=== PATIENT | female | born 1945 | race Caucasian/White ===

== ENCOUNTER → 2017-07-24 | Outpatient (CLI) | payer MEDICARE, BC ==
[~2017-07-24] MED LIST: ACID1PAC PO; ACID1TAB13 PO; Aspirin PO; CIP500 PO; CIPR-344 PO; CLI150 PO; DIA5 PO; DOC100 PO; ENO40I SQ; FLUC100T35 PO; HYDR-318 PO; HYOS0.3729 PO; LEV500 PO; LEVO50TA86 PO; LOM PO; LOR5 PO; LOR7.5/325 PO; METR250 PO; MOM PO; MULT-820 PO; Miscellaneous Information PO; PHENA200 PO
== END ==
LOC: LAB 11:08
PROVIDERS: ATTEND Urology
DX: N39.0 Urinary tract infection, site not specified (principal); B96.89 Other specified bacterial agents as the cause of diseases classified elsewhere
CPT/HCPCS: 81001; 87088

== ENCOUNTER → 2017-12-18 | Outpatient (CLI) | payer MEDICARE, BC ==
--- NOTE | 2017-12-18 15:24 | RADIOLOGY IMAGING REPORT ---
[place] [facility] [place] NAME: Lillian Zavala : 1945 MR: [id number] V: [id number] EXAM DATE: ORDERING PHYSICIAN: STANLEY ROSARIO TECHNOLOGIST: Location: [facility] Patient: Lillian Zavala : 1945 Visit/Account:[id number] Date of Sevice: 12/18/2017 CT ABDOMEN WITHOUT CONTRAST CLINICAL INFORMATION: Abdominal mass, rule out ventral hernia TECHNIQUE: Axial CT images were obtained through the abdomen without administration of IV contrast. Reformatted coronal and sagittal images were also obtained. Dose Lowering Technique One of the following dose optimization techniques was utilized in the performance of this exam: Autom ated exposure control; adjustment of the mA and/or kV according to the patient's size; or use of an i terative reconstruction technique. Specific details can be referenced in the facility's radiology C T exam operational policy. COMPARISON: CT August 31, 2008 FINDINGS: Motion artifact is present Lower lung burn[place]: Limited views lower lung field are unremarkable other than incidental mild aneurys mal dilatation of descending thoracic aorta measuring 3.2 cm in diameter. Evaluation of the solid organs of the abdomen is limited without IV contrast. Liver: No focal parenchymal abnormality of the liver. Biliary: Gallbladder appears unremarkable as well as the intra and extra hepatic biliary system. Pancreas: Atrophic Spleen: Normal appearance. Adrenal glands: Unremarkable. Kidneys / retroperitoneum: No evidence of nephrolithiasis or hydronephrosis Bowel / peritoneum / mesenteries: There is a small hiatal hernia. There is Is a moderate amount of f ecal material seen in the visualized portion the colon which can be seen with constipation Lymph node assessment: No pathologic adenopathy identified. Vessels: Mild vascular calcifications atherosclerotic calcification seen throughout a nonaneurysmal a bdominal aorta and branches. Musculoskeletal / Body wall: Moderate spondylotic changes of the thoracolumbar spine Small umbilical hernia containing fat IMPRESSION: 1. Small umbilical hernia containing fat Mild aneurysmal dilatation of the descending thoracic aorta measuring 3.2 cm in diameter Small hiatal hernia Moderate amount of fecal material throughout colon which can be seen with constipation Report Dictated By: Sierra Tafoya MD at 12/18/2017 3:13 PM Report E-Signed By: Sierra Tafoya MD at 12/18/2017 3:19 PM WSN:[email or web address]
== END ==
LOC: CT 09:58
PROVIDERS: ATTEND Family Medicine
DX: K42.9 Umbilical hernia without obstruction or gangrene (principal); I71.2 Thoracic aortic aneurysm, without rupture; K44.9 Diaphragmatic hernia without obstruction or gangrene; K59.00 Constipation, unspecified
CPT/HCPCS: 74150

== ENCOUNTER → 2018-04-08 | Outpatient (CLI) | payer MEDICARE, BC ==
--- NOTE | 2018-04-09 16:06 | RADIOLOGY IMAGING REPORT ---
FACILITY: [facility] - [place] PATIENT NAME: PATRICIA RODARTE : [id number] MR: [id number] V: [id number] EXAM DATE: [id number] ORDERING PHYSICIAN: STANLEY ROSARIO TECHNOLOGIST: Kacie Campbell PROCEDURE:BILATERAL DIGITAL SCREENING MAMMOGRAM WITH CAD ASSISTED INTERPRETATION & 3D TOMOSYNTHESIS COMPARISON:Prior mammograms. INDICATIONS:SCREENING FINDINGS: Scattered fibroglandular densities are present in both breasts. Several benign appearing calcifications are scattered bilaterally. DIAGNOSTIC CATEGORY 1--NEGATIVE. RECOMMENDATIONS: ROUTINE MAMMOGRAM AND CLINICAL EVALUATION IN 1 YR. IMPRESSION: BIRADS 1: Negative. Dictated by: Ramirez Sam M.D. on 04/09/2018 at 14:27 Transcribed by: KIERRA on 04/09/2018 at 14:32 Approved by: Ramirez Sam M.D. on 04/09/2018 at 16:05 [facility]
== END ==
LOC: MAMO 07:52
PROVIDERS: ATTEND Family Medicine
DX: Z12.31 Encounter for screening mammogram for malignant neoplasm of breast (principal)
CPT/HCPCS: 77063; 77067

== ENCOUNTER → 2018-11-03 | Outpatient (CLI) | payer MEDICARE, BC ==
--- NOTE | 2018-11-03 08:22 | EKG ---
FACILITY: [facility] PATIENT NAME: PATRICIA RODARTE : [id number] MR: [id number] V: [id number] EXAM DATE: ORDERING PHYSICIAN: AMINA CARL TECHNOLOGIST: Test Reason : Blood Pressure : / mmHG Vent. Rate : 078 BPM Atrial Rate : 078 BPM P-R Int : 204 ms QRS Dur : 070 ms QT Int : 372 ms P-R-T Axes : 079 086 089 degrees QTc Int : 424 ms Sinus rhythm premature atrial complexes Septal infarct (cited on or before 28-MAY-2014) No ST-T abnormalities When compared with ECG of 28-MAY-2014 09:05, Relatively unchanged Confirmed by NUNU GASPAR ([id number]) on 11/03/2018 11:08:24 AM Referred By: Confirmed By:NUNU GASPAR
[2018-11-03 08:37] LABS: PLATELET COUNT, AUTOMATED 230 K/uL (150-450)
== END ==
LOC: RESP 08:04
PROVIDERS: ATTEND Orthopaedic Surgery
DX: Z01.812 Encounter for preprocedural laboratory examination (principal); Z01.810 Encounter for preprocedural cardiovascular examination; M48.061 Spinal stenosis, lumbar region without neurogenic claudication
CPT/HCPCS: 36415; 82040; 82247; 82310; 82374; 82435; 82565; 82947; 84075; 84132; 84155; 84295; 84443; 84450; 84460; 84520; 85025; 93005

== ENCOUNTER 2018-11-17 02:18 | Observation (INO) | payer MEDICARE, BC ==
[~2018-11-17] VITALS: Ht 170.2 cm; Wt 71.2 kg
[2018-11-17] VITALS (8 sets, daily range): BP systolic 111–154; BP diastolic 79–108
[~2018-11-17 02:18] MED LIST changes: +METH1TAB58 PO; +SIMV10TA96 PO
[2018-11-17] MEDS ORDERED: fentaNYL CITR 100 MCG/2 ML AMP ONE (14:39)
[2018-11-17] MEDS ORDERED: KETAMINE HCL 500 MG/10 ML VIAL ONE (14:40)
[2018-11-17] MEDS ORDERED: LIDOCAINE MPF 1% 5 ML VIAL ONE (14:41)
[2018-11-17] MEDS ORDERED: ONDANSETRON 4 MG/2 ML VIAL ONE (14:41)
[2018-11-17] MEDS ORDERED: DEXAMETHASONE SOD PHOS 10MG/ML ONE ×2 (14:41→16:30)
[2018-11-17] MEDS ORDERED: PROPOFOL EMUL(*) 10MG/ML 20 ML 20 ML ONE (14:41)
[2018-11-17] MEDS ORDERED: ROCURONIUM BROM 10 MG/ML 10 ML ONE (14:42)
[2018-11-17] MEDS ORDERED: PHENYLEPHRINE 10 MG/1 ML VIAL ONE (14:45)
[2018-11-17] MEDS ORDERED: FAMOTIDINE 20 MG TAB PO ONE (14:50)
[2018-11-17] MEDS ORDERED: MIDAZOLAM 2 MG/2 ML VIAL IVP PRN (14:50)
[2018-11-17] MEDS ORDERED: BACITRACIN 50000 UNIT/VIAL 50,000 UNIT in NS 0.9% IRRIG(*) 1000ML PLCT 1,000 ML IR PRN (14:50)
[2018-11-17] MEDS ORDERED: CLINDAMYCIN(*) 900 MG/NS 50 ML 50 ML IVPB ONE (14:50)
[2018-11-17] MEDS ORDERED: LIDOCAINE/SOD BICARB 8.4% SYR ID ONE (14:50)
[2018-11-17] MEDS ORDERED: NORMOSOL R SOLN(*) 1000 ML BAG 1,000 ML IV PRN (14:50)
[2018-11-17] MEDS ORDERED: BUPIVACAIN 0.25% INJ 50ML VIAL ONE (16:31)
[2018-11-17] MEDS ORDERED: SUGAMMADEX SOD 500 MG/5 ML SDV ONE (16:36)
[2018-11-17] MEDS ORDERED: ePHEDrine 25 MG/5 ML DISP.SYR IVP ONE (17:27)
--- NOTE | 2018-11-17 19:24 | RADIOLOGY IMAGING REPORT ---
FACILITY: [facility] PATIENT NAME: Lillian Zavala : 1945 MR: [id number] V: [id number] EXAM DATE: ORDERING PHYSICIAN: AMINA CARL TECHNOLOGIST: [facility] Patient: Lillian Zavala : 1945 Visit/Account:[id number] Date of Sevice: 11/17/2018 L-SPINE >4 VIEWS History: Low back pain for surgery. Comparison study: None. Findings: Two intraoperative lateral lumbar spine images were submitted for interpretation. The imag es are of suboptimal quality, but do demonstrate prominent discogenic degenerative changes. There is a posterior marking element for surgery in this patient. IMPRESSION: Intraoperative lumbar spine films. Report Dictated By: Jonnathan Marina MD at 11/17/2018 7:18 PM Report E-Signed By: Jonnathan Marina MD at 11/17/2018 7:21 PM WSN:[id number]
[2018-11-17] MEDS ORDERED: ACETAMINOPHEN(*)1000 MG/100 ML 100 ML IVPB PRN (19:30)
[2018-11-17] MEDS ORDERED: HYDROmorphone HCL 2 MG/ML SDV IVP PRN (19:30)
[2018-11-17] MEDS ORDERED: LR(*) 1000 ML BAG 1,000 ML IV PRN (19:30)
[2018-11-17] MEDS ORDERED: BENZOCAINE/MENTHOL 1 EACH LOZG PO PRN (19:30)
[2018-11-17] MEDS ORDERED: ONDANSETRON 4 MG/2 ML VIAL IVP PRN (19:30)
[2018-11-17] MEDS ORDERED: FLUSH 10 ML SYR IVP PRN (19:30)
[2018-11-17] MEDS ORDERED: oxyCODONE HCL 5 MG CAP PO PRN (19:30)
[2018-11-17] MEDS ORDERED: APAP/HYDROCODONE 325/5 TAB PO PRN (19:30)
[2018-11-17] MEDS ORDERED: diphenhydrAMINE 25 MG CAP PO PRN (19:30)
[2018-11-17] MEDS ORDERED: BISACODYL 10 MG SUPP PR PRN (19:30)
[2018-11-17] MEDS ORDERED: ACETAMINOPHEN 500 MG TAB PO PRN (19:30)
[2018-11-17] MEDS ORDERED: DIAZEPAM 5 MG TAB PO PRN (19:30)
[2018-11-17] MEDS ORDERED: MAGNESIUM HYDROXIDE* 30ML UDCP PO PRN (19:30)
--- NOTE | 2018-11-17 20:05 | Hospitalist Progress Note ---
Subjective Progress Notes Subjective Patient seen post-op. Reviewed PMHx and medications. She reports doing well currently. Very little surgical site pain. No CP/SOB/nausea. Physical Exam Vital Signs Date Time Temp Pulse Resp B/P (MAP) Pulse Ox O2 Delivery O2 Flow Rate FiO2 11/17/18 19:57 97.6 97 16 87 Room Air General Appearance: Alert, Awake Cardiovascular: Regular Rate and Rhythm (with soft systolic murmur) Respiratory: Clear to Auscultation (anteriorly) Psych: Alert & Oriented X3 Assessment and Plan Problems: (1) Hyperlipidemia Status: Chronic Assessment & Plan: Will continue her usual simvastatin. (2) Hypothyroid Status: Chronic Assessment & Plan: Will continue replacement therapy. (3) Recurrent UTI Status: Chronic Assessment & Plan: She has been managed with Hiprex daily. KENDRA LANDRY MD November 17, 2018 20:05
[2018-11-17] MEDS: DOCUSATE SODIUM 100 MG CAP PO SCH (20:12)
[2018-11-17] MEDS ORDERED: SIMVASTATIN 20 MG TAB PO SCH (21:00)
[2018-11-18] VITALS: BP 107/78
[2018-11-18 01:00] VITALS: BP 100/68
[2018-11-18] MEDS ORDERED: NS(*) 0.9% 250 ML BAG 250 ML ONE (01:16)
[2018-11-18] MEDS: CLINDAMYCIN(*) 900 MG/NS 50 ML 50 ML IVPB SCH ×2 (01:27→09:00)
--- NOTE | 2018-11-18 04:10 | OPERATIVE REPORT 1 ---
EVENT DATE: November 17, 2018 SURGEON: Donis Duong MD ANESTHESIOLOGIST: Harish Tafoya DO ANESTHESIA: General endotracheal anesthesia. VP OF PRODUCT: Xavier Carter PA-C PREOPERATIVE DIAGNOSIS L3 and L4 right-sided radiculopathy. POSTOPERATIVE DIAGNOSIS L3 and L4 right-sided radiculopathy. PROCEDURE PERFORMED Right L3 hemilaminectomy with L3-L4 lateral recess decompression and L3 and L4 foraminotomy. INTRAVENOUS FLUIDS 900 mL. ESTIMATED BLOOD LOSS 40 mL. IMPLANTS USED None. SPECIMENS None. DRAINS None. COMPLICATIONS None. DISPOSITION Postanesthesia care unit. INDICATIONS FOR PROCEDURE Ms. Zavala is a 73-year-old female who presented with L3 and L4 distribution radiculopathy. L3 injections gave her some good relief of her symptoms. Her examination was normal, but her MRI showed significant lateral recess narrowing and some foraminal narrowing at the L3-L4 level, with the L3 foramen and the L4 foramen narrowed. Secondary to ongoing symptoms and failure of nonsurgical treatment, Ms. Zavala was offered and elected to undergo L3-L4 laminoforaminotomy with an L3 hemilaminectomy, which we have elected to do so that we could also decompress the L3 nerve root in the foramen. Prior to surgery, I explained in detail to the patient the possible risks of surgery. These risks include bleeding, infection, damage to surrounding structures, nerve root injury, spinal fluid leak, infection, meningitis, need for further surgery, , blindness, sexual dysfunction, autonomic nervous system dysfunction, and other unforeseen medical and surgical complications. An understanding that in general, spinal surgery is more predictive at improving extremity discomfort than axial spine pain was stressed. DESCRIPTION OF PROCEDURE On the day of surgery, the patient was met in the preoperative hold area and all questions were answered. The operative site was identified and marked by myself. The patient was brought in good condition to the operating room, and after succumbing to anesthesia was positioned in the prone position on a Yang table. All bony protuberances and soft tissues were well padded in standard fashion. Care was taken to maintain appropriate perfusion pressures during anesthesia. Preoperative antibiotics were administered according to the appropriate timing schedule. At the conclusion of the procedure, sponge and needle counts were correct x2. A spinal needle was placed on the spinous process of L3, and a lateral radiograph was obtained to confirm appropriate spinal level. The patient was then prepped and draped in the standard sterile orthopedic fashion, and a vertical incision was made overlying the intended surgical level. Sharp dissection was carried out down onto the tips of the spinous processes of L3 and L4. Soft tissues were elevated off the spinous processes and the lamina in a subperiosteal manner. A self-retaining retractor was placed on the right side at the L3-L4 interval. A hemilaminectomy of the L3 lamina was performed, and I entered the canal using a curette to undermine the superior insertion of the ligamentum flavum from the inferior aspect of the L3 lamina. I then thoroughly decompressed the lateral recess as well as both the L3 and the L4 foramen using a combination of #2 and #3 Kerrison punches. At the conclusion of the decompression, a [place] elevator was passed out the foramina both at L3 and L4 as well as in the lateral recess, and a good decompression had been obtained. The wound was irrigated with copious sterile saline solution, and meticulous hemostasis was obtained. The wound was then closed in layers using interrupted sutures for the deep fascia, inverted interrupted sutures for the subcutaneous tissue, and a running subcuticular skin stitch. Sponge and needle counts were correct x2. POSTOPERATIVE CARE PLAN The patient will remain in the hospital until she meets discharge criteria. She will be discharged home with followup in two weeks for wound check and examination. BLAKE
[2018-11-18] MEDS ORDERED: LEVOTHYROXINE SOD 0.05 MG TAB PO SCH (06:00)
[2018-11-18 07:34] VITALS: BP 97/71
[2018-11-18] MEDS ORDERED: HYDR-389 PO (07:41)
[2018-11-18] MEDS ORDERED: DIA5 PO (07:42)
[2018-11-18] MEDS ORDERED: DOCU240C84 PO (07:42)
[2018-11-18] MEDS ORDERED: METHENAMINE HIPPURATE 1 GM TAB PO SCH (09:00)
[2018-11-18] MEDS: DOCUSATE SODIUM 100 MG CAP PO SCH (09:00)
--- NOTE | 2018-11-18 09:23 | NUR ---
Physical Therapy Impression PT eval complete. Pt met all PT goals and is safe to d/c home from a mobility stand point when medically appropriate. Pt completed log roll with good technique and SBA. Jose for transfers with SPC. Ambulation x150' with SPC, pt with slight path deviation but able to self correct. Asc/desc platform stair x2 with SBA/CGA and good sequencing demonstrated. Rec continued use of SPC, no further PT visits planned. Physical Therapy Goals 1: Pt to complete bed mobility with SBA 2: Pt to complete transfers with Jose and SPC. 3: Pt to ambulate 150' with SBA and SPC. 4: pt to asc/desc 1 platform stair with CGA to simulate entry into home Patient's Goals
--- NOTE | 2018-11-18 10:07 | Hospitalist Progress Note ---
Subjective Progress Notes Subjective She was admitted s/p lumbar surgery. She had no acute events overnight. She would like to go home today. Patient Complains of: Cardiovascular: No: Chest Pain Respiratory: No: Shortness of Breath Physical Exam Vital Signs Date Time Temp Pulse Resp B/P (MAP) Pulse Ox O2 Delivery O2 Flow Rate FiO2 11/18/18 07:34 96 11/18/18 07:34 98.3 80 14 97/71 (80) Room Air 11/18/18 01:00 2.0 Intake and Output 11/18/18 07:00 Intake Total 2300 ml Balance 2300 ml Intake Oral 500 ml IV Total 1800 ml # Bowel Movements 0 General Appearance: Alert, Awake, No Acute Distress, Afebrile Neuro: No Gross deficits Cardiovascular: Regular Rate and Rhythm Respiratory: No Respiratory Distress, Clear to Auscultation GI: Soft and Non-Tender Psych: Alert & Oriented X3, Appropriate Mood & Affect Assessment and Plan Problems: (1) Hyperlipidemia Status: Chronic Assessment & Plan: Will continue her usual simvastatin. (2) Hypothyroid Status: Chronic Assessment & Plan: Will continue replacement therapy. (3) Recurrent UTI Status: Chronic Assessment & Plan: She has been managed with Hiprex daily. Exam Sepsis Risk: No Definite Risk DOROTEO BURGOS [employer] MANAGER November 18, 2018 10:07
== END 2018-11-18 09:51 | disposition home or self-care (01) ==
LOC: OR 02:18 → MED 19:55 → INTOOBSV 19:55
PROVIDERS: ADMIT Orthopaedic Surgery; ATTEND Orthopaedic Surgery
DX: M54.16 Radiculopathy, lumbar region (principal)
CPT/HCPCS: 63047; 72020; 97161; A9270; G0378; J1100; J2001; J2370; J2405; J2704; J3010; J3490; J7050

== ENCOUNTER → 2018-12-09 | Outpatient (CLI) | payer MEDICARE, BC ==
[~2018-12-09] MED LIST changes: +DOCU240C84 PO; +HYDR-389 PO
--- NOTE | 2018-12-09 14:17 | RADIOLOGY IMAGING REPORT ---
FACILITY: [facility] PATIENT NAME: Lillian Zavala : 1945 MR: [id number] V: [id number] EXAM DATE: ORDERING PHYSICIAN: STANLEY ROSARIO TECHNOLOGIST: Location: [facility] Patient: Lillian Zavala : 1945 Visit/Account:[id number] Date of Sevice: 12/09/2018 DEXA Scan Clinical history: Osteopenia. Comparison: DEXA scan from 01/30/2013. LUMBAR SPINE: The bone mineral density (BMD) measured from L1-L4 correlates with a Z-score of 0.5 and a T-score of -2 which is osteopenia as defined by the World Health Organization. The corresponding risk of fractu re in the lumbar spine is 4 times increased compared with a young adult reference population. This v alue has decrease by 18.3 % since the prior study. More than 5% change is considered significant. HIP: Bone mineral density (BMD) measured in the LEFT total hip region correlates with a Z-score -0.5 and a T-score of -1.9 which is osteopenia as defined by the World Health Organization. The corresponding risk of fracture in the hip is 3-4 times increased compared to a young adult reference population. Th is value has decrease by 10.3 % since the prior study. More than 5% change is considered significant . T score left femoral neck -2.1 Bone mineral density (BMD) measured in the Femoral Neck region measures 0.745 g/cm?. IMPRESSION: 1. Lumbar spine: Osteopenia. There has been 18.3% decrease in the bone mineral density since the pr evious exam. 2. Left Total Hip: Osteopenia. There has been 10.3% decrease in the bone mineral density since the previous exam. 3. Femoral Neck: Bone Mineral Density is 0.745 g/cm? The next DEXA scan of this patient should include the following sites: L1-L4 and the left hip. FRAX? WHO Fracture Risk Assessment Tool link: <http://www.shef.ac.uk/FRAX/tool.jsp?locationValue=9> PLEASE NOTE: 1) The World Health Organization defines low BMD as follows: T-score Normal > -1 Osteopenia < -1 and > -2.5 Osteoporosis < -2.5 without fractures Established osteoporosis < -2.5 with fractures 2) In general, you may wish to consider: Diagnosis Treatment Follow-up DEXA Normal BMD Prevention 2-3 years Osteopenia Prevention/therapy 1-2 years Osteoporosis Therapy Yearly 3) Fracture risk estimated from the T-score is more accurate for vertebral fractures (often spontane ous) than for hip fractures. Report Dictated By: Sierra Tafoya MD at 12/09/2018 2:10 PM Report E-Signed By: Sierra Tafoya MD at 12/09/2018 2:12 PM WSN:[email or web address]
== END ==
LOC: RAD 00:59
PROVIDERS: ATTEND Family Medicine
DX: M85.89 Other specified disorders of bone density and structure, multiple sites (principal)
CPT/HCPCS: 77080